=== PATIENT | female | born 1965 | race Caucasian/White ===

== ENCOUNTER → 2018-01-01 11:46 | Outpatient (CLI) | payer BC, SELFPAY ==
--- NOTE | 2018-01-01 | DI.MG.S_ITS ---
BILATERAL DIGITAL SCREENING MAMMOGRAM 3D/2D WITH CAD: 01/01/2018 CLINICAL: Routine screening. Family history of breast cancer. Comparison is made to exams dated: 11/16/2016 mammogram, 09/15/2013 mammogram, and 06/16/2012 mammogram - [facility]. The tissue of both breasts is heterogeneously dense. This may lower the sensitivity of mammography. Current study was also evaluated with a Computer Aided Detection (CAD) system. There is an oval equal density focal asymmetry with an indistinct margin in the right breast at 1 o'clock posterior depth. No other significant masses, calcifications, or other findings are seen in either breast. IMPRESSION: INCOMPLETE: NEEDS ADDITIONAL IMAGING EVALUATION The oval equal density focal asymmetry in the right breast is indeterminate. Mediolateral and spot compression views as well as additional views with possible ultrasound are recommended. This exam was interpreted at Station ID: [id number]. NOTE: For mammograms, a report in lay terms will be sent to the patient. Approximately 15% of breast malignancies will not be visualized mammographically. In the management of a palpable breast mass, a negative mammogram must not discourage biopsy of a clinically suspicious lesion. Electronically Signed By: Ion ramirez/rachel:01/01/2018 16:02:43 letter sent: Additional Imaging Needed ACR BI-RADS Category 0: Incomplete [id number]
== END ==
PROVIDERS: Family Provider Nurse Practitioner Family; PCP Nurse Practitioner Family; Visit Provider Nurse Practitioner Family
DX: Z12.31 Encounter for screening mammogram for malignant neoplasm of breast (principal); Z80.3 Family history of malignant neoplasm of breast
CPT/HCPCS: 77063; 77067

== ENCOUNTER → 2018-01-30 13:54 | Outpatient (CLI) | payer BC, SELFPAY ==
--- NOTE | 2018-01-30 | DI.MG.S_ITS ---
UNILATERAL RIGHT DIGITAL DIAGNOSTIC MAMMOGRAM 3D/2D WITH ADDITIONAL VIEWS: 01/30/2018 CLINICAL: Additional evaluation requested from prior study. Family history of breast cancer. Comparison is made to exams dated: 01/01/2018 mammogram, 11/16/2016 mammogram, and 09/15/2013 mammogram - [facility]. The tissue of right breast is heterogeneously dense. This may lower the sensitivity of mammography. The focal asymmetry with an indistinct margin in the right breast at 1 o'clock posterior depth is seen in additional views and appears to represent asymmetric fibroglandular tissue. No other significant masses or calcifications are seen in the breast. IMPRESSION: INCOMPLETE: NEEDS ADDITIONAL IMAGING EVALUATION The focal asymmetry in the right breast likely represents fibroglandular tissue. However, a precautionary targeted ultrasound of the right breast is recommended and will be performed immediately following this exam. This exam was interpreted at Station ID: [id number]. NOTE: For mammograms, a report in lay terms will be sent to the patient. Approximately 15% of breast malignancies will not be visualized mammographically. In the management of a palpable breast mass, a negative mammogram must not discourage biopsy of a clinically suspicious lesion. Electronically Signed By: Edna sheppard/:01/30/2018 17:47:20 letter sent: Additional Imaging Needed ACR BI-RADS Category 0: Incomplete [id number]
--- NOTE | 2018-01-30 | DI.US.S_ITS ---
ULTRASOUND OF RIGHT BREAST: 01/30/2018 CLINICAL: Patient returns for additional imaging over a suspected mass in the right breast. Comparison is made to exams dated: 01/30/2018 mammogram, 01/01/2018 mammogram, and 11/16/2016 mammogram - [facility]. Color flow and real-time ultrasound of the right breast were performed on the areas of interest. Chairez scale images of the real-time examination were reviewed. There is a 0.5 cm cyst in the right breast at 2 o'clock middle depth. This cyst is anechoic. This correlates as an incidental finding. IMPRESSION: BENIGN There is no sonographic evidence of malignancy. The 0.5 cm cyst in the right breast is benign. There is no sonographic abnormality seen in the right breast to correspond with the mammography finding in the upper outer quadrant which is most consistent with asymmetric fibroglandular tissue. A 1 year screening mammogram is recommended. This exam was interpreted at Station ID: [id number]. Electronically Signed By: Edna sheppard/:01/30/2018 17:49:57 letter sent: Normal Exam Ultrasound BI-RADS: 2 Benign
== END ==
PROVIDERS: Family Provider Nurse Practitioner Family; PCP Nurse Practitioner Family; Visit Provider Nurse Practitioner Family
DX: R92.8 Other abnormal and inconclusive findings on diagnostic imaging of breast (principal); N60.01 Solitary cyst of right breast; Z80.3 Family history of malignant neoplasm of breast
CPT/HCPCS: 76642; 77065; G0279